=== PATIENT | male | born 1955 | race Caucasian/White ===

== ENCOUNTER 2016-08-17 06:15 | Emergency (ER) | payer OTHER ==
--- NOTE | ~2016-08-17 | EKG ---
PATIENT: ZAINA MILLARD UNIT #: [id number] Ventricular Rate: 84 BPM Atrial Rate: 84 BPM P-R Interval: 162 ms QRS Duration: 88 ms Q-T Interval: 352 ms QTC Calculation(Bezet): 415 ms P [place]: 77 degrees Calculated R [place]: 53 degrees Calculated T [place]: 54 degrees Diagnosis Line: Normal sinus rhythm Diagnosis Line: Normal ECG Diagnosis Line: When compared with ECG of 08-JUL-2015 16:54, Diagnosis Line: No significant change was found Diagnosis Line: Confirmed by PATSY CANNON MD ([id number]) on Diagnosis Line: 08/17/2016 2:27:35 PM INTERPRETING MD: KASSANDRA LOVE
--- NOTE | ~2016-08-17 | CR72 ---
[facility] A Service of [facility] & [facility] RADIOLOGY TEXT RESULTS PATIENT: ZAINA MILLARD LOCATION: [facility] : 59 UNIT #: [id number] AGE: [address]: Preston Chatterjee MD SEX: M ORDER DR: [id number] [facility] [address] [place], [place] [address] [id number] MR#: [id number] Acc #: [id number] NAME: ZAINA MILLARD : 1955 SEX: M STUDY DATE/TIME: 08/17/2016 6:22 UNIT: [facility] ROOM: STUDY DESCRIPTION: CR Chest Single View Portable Attending Physician: Preston Chatterjee M.D. Ordering Physician: Preston Chatterjee M.D. Primary Care Physician: No Primary Care Physician MEDICAL IMAGING REPORT This report is preliminary unless electronic signature is present EXAM Portable chest, 1 view, 08/17/2016. COMPARISON 05/27/2016. HISTORY Short of air for 2 days. FINDINGS Lungs are well expanded, but clear. No infiltrate, effusion, pneumothorax or suspicious nodule. Heart size normal. [place] structures normal. IMPRESSION Normal negative portable chest. Dictated by... Roberto Barr M.D. THIS IS AN ELECTRONICALLY VERIFIED REPORT Roberto Barr M.D. at 08/17/2016 1:48 PM TEV/gz TD: 08/17/2016 13:10 JOB #: [id number] MEDICAL IMAGING REPORT Page 1 of 1 COPY
[~2016-08-17 06:15] MED LIST: ACETAMINOPHEN PR; DAKIN'S MODIF1000 ML EXT; DOXYCYCLINE HY100 M1 PO; PERCOCET 10/3251 TAB PO; PERCOCET5/325 PO; PHENERGAN PO; ULTRAM PO; ZYVOX600 MG PO
[2016-08-17 06:51] LABS: INFLUENZA A NEG (NEG); INFLUENZA B NEG (NEG)
[2016-08-17 07:07] LABS: BASOPHIL# 0.1 X10e3 (0-0.3); BASOPHIL% 0.5 % (0-2.5); EOSINOPHIL# 0.3 X10e3 (0-0.7); EOSINOPHIL% 2.9 % (0.0-7.0); HEMATOCRIT 48.1 % (38.0-50.0); HEMOGLOBIN 15.8 gm/dL (13.0-16.0); LYMPHOCYTE# 1.8 X10e3 (1.0-3.5); LYMPHOCYTE% 16.9 % (17.0-45.0); MEAN CELL VOLUME 87.1 FL (83-96); MEAN CORPUSCULAR HEMOGLOBIN 28.6 PG (28-34); MEAN CORPUSCULAR HGB CONC 32.9 g/dL (30-36); MEAN PLATELET VOLUME 7.5 FL (6.5-11.5); MONOCYTE# 0.8 X10e3 (0-1.0); MONOCYTE% 7.3 % (3.0-12.0); NEUTROPHIL# 7.8 X10e3 (1.5-7.1); NEUTROPHIL% 72.4 % (40-75); PLATELET COUNT 315 X10e3 (140-420); RED BLOOD COUNT 5.52 X10e (3.90-5.60); RED CELL DISTRIBUTION WIDTH 14.1 % (11.0-15.5); WHITE BLOOD COUNT 10.8 X10e3 (4.0-10.5)
[2016-08-17 07:08] LABS: DIFF IND NO
[2016-08-17 07:31] LABS: ALBUMIN SERUM 3.8 g/dL (3.5-5.0); ALKALINE PHOSPHATASE 66 U/L (32-92); ALT (SGPT) 197 U/L (10-40); AST (SGOT) 122 U/L (10-42); BILIRUBIN, DIRECT 0.1 mg/dL (0.0-0.2); BILIRUBIN,INDIRECT 0.1 mg/dL (0.0-0.9); BILIRUBIN,TOTAL 0.2 mg/dL (0.2-2.0); BLOOD UREA NITROGEN 16 mg/dL (9-23); BUN/CREATININE RATIO 26.66; CALCIUM SERUM 9.2 mg/dL (8.4-10.2); CARBON DIOXIDE 26 mmol/L (22-31); CHLORIDE 100 mmol/L (100-111); CREATININE SERUM 0.6 mg/dL (0.6-1.4); GLOM FILT RATE Estimated ABOVE60 mL/min (>60); GLUCOSE FASTING 94 mg/dL (70-110); LIPASE 27 U/L (22-51); POTASSIUM 4.2 mmol/L (3.5-5.1); SODIUM 134 mmol/L (135-145)
== END 2016-08-17 09:52 | disposition home or self-care (01) ==
LOC: CED 06:15
PROVIDERS: Emergency Medicine
DX: B34.9 Viral infection, unspecified (principal); M25.50 Pain in unspecified joint; R79.89 Other specified abnormal findings of blood chemistry; Z90.49 Acquired absence of other specified parts of digestive tract; F17.200 Nicotine dependence, unspecified, uncomplicated; Z88.0 Allergy status to penicillin
CPT/HCPCS: 36415; 71010; 80048; 80076; 83690; 85025; 87804; 93005; 96374; 96375; 99284; J1885; J2405